=== PATIENT | male | born 1970 | race Caucasian/White ===

== ENCOUNTER 2018-10-02 17:35 | Inpatient (IN) | payer MEDICARE, OTHER ==
[~2018-10-02] VITALS: Ht 180.3 cm; Wt 293.9 kg
[2018-10-02 19:05] LABS: BASOPHILS % 0.4 % (0.0-1.0); EOSINOPHILS # (AUTO) 0.2 (0.0-0.4); EOSINOPHILS % 2.1 % (0.0-6.0); HEMATOCRIT 42.1 % (38.2-49.6); HEMOGLOBIN 13.5 g/dL (14.0-18.0); LYMPHOCYTES # (AUTO) 1.6 (1.0-3.2); LYMPHOCYTES % 14.9 % (18.0-39.1); MEAN CORPUSCULAR HEMOGLOBIN 27.3 pg (28-32); MEAN CORPUSCULAR HGB CONC 32.1 g/dL (31-35); MEAN CORPUSCULAR VOLUME 85.2 fL (81-99); MONOCYTES # (AUTO) 0.9 (0.2-0.8); MONOCYTES % 8.5 % (4.4-11.3); NEUTROPHILS # (AUTO) 7.9 (2.1-6.9); NEUTROPHILS % 73.2 % (38.7-80.0); PLATELET COUNT 267 x10e3/uL (140-360); RED BLOOD COUNT 4.94 x10e6/uL (4.3-5.7); RED CELL DISTRIBUTION WIDTH 13.5 % (11.7-14.4)
[2018-10-02 19:27] LABS: ALANINE AMINOTRANSFERASE 11 IU/L (0-55); ALBUMIN 2.6 g/dL (3.5-5.0); ALBUMIN/GLOBULIN RATIO 0.7 (0.8-2.0); ALKALINE PHOSPHATASE 79 IU/L (40-150); BLOOD UREA NITROGEN 12 mg/dL (7-26); BUN/CREATININE RATIO 13 (6-25); CALCIUM 9.2 mg/dL (8.4-10.2); CARBON DIOXIDE 26 mmol/L (22-29); CHLORIDE 97 mmol/L (98-107); CREATININE, SERUM 0.91 mg/dL (0.72-1.25); EST GLOMERULAR FILTRATION RATE > 60 ML/MIN (60-); GLUCOSE 146 mg/dL (74-118); SODIUM 133 mmol/L (136-145)
[2018-10-02 19:36] LABS: INR 0.95; PARTIAL THROMBOPLASTIN TIME 33.7 seconds (23.8-35.5); PROTHROMBIN TIME 13.5 seconds (11.9-14.5)
[2018-10-02] MEDS ORDERED: ONDANSETRON HCL INJ 2 MG/ML VIAL ONE (19:39)
--- NOTE | 2018-10-02 19:40 | NUR ---
12F URETHRAL BURNS CATH STARTED AT THIS TIME, PT TOLERATED WELL. TOTAL OF 500CC RETURN.
[2018-10-02] MEDS: VANCOMYCIN 1GM/NS 250 ML 250 ML IV SCH (20:30)
[2018-10-02] MEDS ORDERED: MORPHINE SULFATE 2 MG/ML SYR IV PRN (20:30)
[2018-10-02] MEDS: PIPER-TAZ 3.375 GM 50 ML IV SCH ×2 (20:30→22:00)
[2018-10-02 20:36] LABS: BILIRUBIN,URINE NEGATIVE (NEGATIVE); CLARITY,URINE CLEAR (CLEAR); COLOR,URINE YELLOW (YELLOW); KETONES,URINE NEGATIVE (NEGATIVE); LEUKOCYTE ESTERASE ,URINE NEGATIVE (NEGATIVE); NITRITE,URINE NEGATIVE (NEGATIVE); PROTEIN,URINE DIPSTICK NEGATIVE (NEGATIVE); URINE UROBILINOGEN 0.2 mg/dL (0.2 - 1)
[2018-10-02 20:43] LABS: AMORPHOUS SEDIMENT,URINE FEW (FEW); BACTERIA,URINE MANY /HPF; EPITHELIAL CELLS,URINE MODERATE /LPF; MUCUS,URINE MODERATE (RARE)
[2018-10-02 21:00] VITALS: BP 121/70
--- NOTE | 2018-10-02 21:20 | NUR ---
PT ARRIVING TO UNIT IN [facility] BED, PT ALERT AND ORIENTED, NO DISTRESS NOTED, BED LOCKED AND LOW, DENIES NEEDS, CALL LIGHT IN REACH, INSTRUCTED TO CALL WITH NEEDS
[2018-10-02 21:30] VITALS: BP 121/70
[2018-10-02] MEDS: ONDANSETRON HCL INJ 2 MG/ML VIAL IV PRN (23:45)
[2018-10-02] MEDS: MORPHINE SULFATE INJ 4 MG/ML INJ IV PRN (23:45)
--- NOTE | 2018-10-02 23:56 | NUR ---
SPOKE TO JOANN WITH SIZE PERAZA. PATIENT IS CURRENTLY ON LOW AIR LOSS MATTRESS THAT IS NOT FULLY INFLATING. THIS IS CAUSING THE PATIENT TO BOTTOM OUT. PATIENT FEELS LIKE HIS BUTTOCKS ARE RESTING ON THE BED FRAME. REORDERED A SPECIALITY MATTRESS THAT IS NOT AN AIR MATTRESS. A TRAPEZE WAS ALSO ORDERED WITH A HERCULES LINER. THE LINER WILL ALLOW THE PATIENT TO BE PULLED UP IN THE BED. CONFIRMATION FOR HEALTH DATA ADMINISTRATOR OF NON FUNCTIONAL SIZE PERAZA BED IS [id number]. DELIVERY FOR FOAM MATTRESS CONFIRMATION NUMBER IS [id number]. AND CONFIRMATION NUMBER FOR HERCULES LINER AND TRAPEZE IS [id number]. THE HERCULES LINER CAN PULL PATIENT UP IN THE BED AND WILL AID IN REPOSITIONING THE PATIENT NEEDED.
[2018-10-02] MEDS: SODIUM CHLORIDE 0.9% 1000ML 1,000 ML IV SCH (23:58)
[2018-10-03] VITALS (7 sets, daily range): BP systolic 103–135; BP diastolic 56–75
[2018-10-03] MEDS ORDERED: LISINOPRIL10 MG PO (00:04)
[2018-10-03] MEDS ORDERED: HYDROCHLOROTHIA25 MG (00:04)
--- NOTE | 2018-10-03 00:35 | NUR ---
SPOKE TO DON WITH SIZE PERAZA. WILL BE ABLE TO DELIVER THE NEW ORDER WITHIN 2HRS. PM NURSE AND PATIENT MADE AWARE. INFORMED SECURITY TO BE ON THE LOOK OUT FOR THE DELIVERY.
[2018-10-03] MEDS: SODIUM CHLORIDE 0.9% 1000ML 1,000 ML IV SCH ×2 (04:16→21:19)
[2018-10-03] MEDS: PIPER-TAZ 3.375 GM 50 ML IV SCH ×3 (05:20→22:46)
[2018-10-03 06:02] LABS: BASOPHILS # (AUTO) 0.1 (0.0-0.1); BASOPHILS % 0.7 % (0.0-1.0); EOSINOPHILS # (AUTO) 0.3 (0.0-0.4); EOSINOPHILS % 3.7 % (0.0-6.0); HEMATOCRIT 38.8 % (38.2-49.6); HEMOGLOBIN 12.5 g/dL (14.0-18.0); LYMPHOCYTES # (AUTO) 1.7 (1.0-3.2); LYMPHOCYTES % 18.7 % (18.0-39.1); MEAN CORPUSCULAR HEMOGLOBIN 27.5 pg (28-32); MEAN CORPUSCULAR HGB CONC 32.2 g/dL (31-35); MEAN CORPUSCULAR VOLUME 85.5 fL (81-99); MONOCYTES % 11.4 % (4.4-11.3); NEUTROPHILS # (AUTO) 5.9 (2.1-6.9); NEUTROPHILS % 64.8 % (38.7-80.0); PLATELET COUNT 236 x10e3/uL (140-360); RED BLOOD COUNT 4.54 x10e6/uL (4.3-5.7); RED CELL DISTRIBUTION WIDTH 13.5 % (11.7-14.4)
[2018-10-03 06:20] LABS: ALANINE AMINOTRANSFERASE 10 IU/L (0-55); ALBUMIN 2.5 g/dL (3.5-5.0); ALBUMIN/GLOBULIN RATIO 0.7 (0.8-2.0); ALKALINE PHOSPHATASE 71 IU/L (40-150); ANION GAP 14.2 mmol/L (8-16); BLOOD UREA NITROGEN 10 mg/dL (7-26); BUN/CREATININE RATIO 12 (6-25); CALCIUM 8.7 mg/dL (8.4-10.2); CARBON DIOXIDE 24 mmol/L (22-29); CHLORIDE 102 mmol/L (98-107); CREATININE, SERUM 0.84 mg/dL (0.72-1.25); EST GLOMERULAR FILTRATION RATE > 60 ML/MIN (60-); GLUCOSE 144 mg/dL (74-118); POTASSIUM 4.2 mmol/L (3.5-5.1); SODIUM 136 mmol/L (136-145)
--- NOTE | 2018-10-03 07:10 | NUR ---
RECEIVED PATIENT RESTING IN BED WITH EYES CLOSED. NO S/S OF DISTRESS NOTED. CALL LIGHT WITHIN REACH. BED IN THE LOWEST POSITION.
[2018-10-03] MEDS: VANCOMYCIN 1GM/NS 250 ML 250 ML IV SCH ×2 (08:52→21:19)
[2018-10-03] MEDS: ONDANSETRON HCL INJ 2 MG/ML VIAL IV PRN ×2 (09:19→21:24)
[2018-10-03] MEDS: MORPHINE SULFATE INJ 4 MG/ML INJ IV PRN (09:20)
--- NOTE | 2018-10-03 11:48 | NUR ---
WC CONSULTATION - INITIAL EVALUATION -Pt admitted through ER for Cellulitis of Left Leg, Uncontrolled Lymphedema of BLE and Urinary Retention. -HX: DM, Lymphedema -IV ABX Initiated LABS: WBC9.13 Hgb12.5 Clp764 Alb2.5 -WC Consulted For Open Draining Wounds to BLE. - Head to toe assessment performed. UNCONTROLLED +4 EDEMA-BLE. 1. LLE Anterior Distal - 3x2x 0.2 cm - Macerated 80%, granulation 20% 2. LLE Anterior Proximal - 5x2x0.2 cm - Macerated 80%, granulation 20% 3. LLE Post Distal - 7x8x0.2 cm Macerated 80%, granulation 20% 4. LLE Post Prox- 21w99e1.2 cm Macerated 80%, granulation 20% 5. RLE Upper Medial - 17x8x0.2 cm Macerated 80%, granulation 20% -Big boy bed noted with Overhead Trapeze. -Patient states unable to go to Lymphedema Center and has no transportation or support system at home. -REFUSING COMPRESSION due to pain. -Provides self care at home. -Denies previous circulation/ blood flow studies to BLE. -Bedside Flow Studies done today - Pending results -Education provided & treatment plan reviewed with benefits of compliance vs non compliance. RECOMMENDATION: 1. WASH BLE WITH HIBICLENS SOAP AND WATER THEN PAT TRY THOROUGHLY DAILY, THEN APPLY MAXSORB AG+ AND COVER WITH ABD PAD DAILY. 2. Continue Big Boy Bed and OHT. 3. Assist with Turning and Repositioning q2h. 4. Shear Friction Precautions. Addendum: 10/03/18 at 1225 by Addison Kingston RN Amended: Links added. Addendum: 10/03/18 at 1230 by Addison Kingston RN DC PLANNING NEEDS: LTC vs. SNF vs. HOME with Home Health + WC Center Visits for Lymphedema and Wound Care Management If Home With HH will require + Transportation services to outpatient WC.
--- NOTE | 2018-10-03 13:01 | NUR ---
CM MET WITH PT REGARDING DC PLANS PT LIVES ALONE IN A HOUSE IN [place] PT IS ON DISABILITY FOR LYMPHEDEMA HAS A FRIEND DL FIGUEROA [phone] WHO TAKES HIM TO HIS DOCTOR APPTS PT DOES NOT DRIVE HAS A CANE NO HOME HEALTH CARE PCP DR HITESH RODARTE CM TO FOLLOW
[2018-10-03] MEDS ORDERED: ACETAMINOPHEN/CODEINE 300MG - 30MG TAB PO PRN (14:45)
[2018-10-03] MEDS ORDERED: HYDROMORPHONE 1MG/1ML INJ IV PRN (15:00)
[2018-10-03] MEDS ORDERED: LISINOPRIL 10 MG TAB PO SCH (17:00)
[2018-10-03] MEDS: ENOXAPARIN SOD INJ 40 MG/0.4 ML SYR SC SCH (17:37)
[2018-10-03] MEDS: LACTOBACILLUS ACIDOPHILUS CAPSULE PO SCH (17:37)
[2018-10-03] MEDS: LISINOPRIL 20 MG TAB PO SCH (17:37)
--- NOTE | 2018-10-03 19:29 | NUR ---
REPORT GIVEN TO ONCOMING NURSE. WALKING ROUNDS DONE. PATIENT IS RESTING IN BED. NO ACUTE DISTRESS NOTED. CALL LIGHT WITHIN REACH. BED IN THE LOWEST POSITION.
--- NOTE | 2018-10-03 19:30 | Consultation ---
DATE OF CONSULTATION: October 03, 2018 UROLOGY CONSULTATION REASON FOR CONSULTATION: Urinary retention. HISTORY OF PRESENT ILLNESS: Mohan Díaz is a 47-year-old man currently admitted by the emergency room for cellulitis. The patient had a difficult time urinating. The nursing staff had a difficult time getting a Crawford catheter in. They were eventually able to get in a 12-Qatari Crawford catheter and obtained 600 mL of urinary retention. The patient denies previous hematuria, dysuria, urinary tract infection, or ureterolithiasis. Denies ever having urological surgery. The patient denies ever having any ureterolithiasis. PAST MEDICAL AND SURGICAL HISTORY 1. Status post appendectomy. 2. Severe morbid obesity, weighing over 600 pounds. 3. Hypertension. ALLERGIES: PLEASE REFER TO THE MAR. MEDICATIONS: Please refer to the MAR. SOCIAL HISTORY: The patient is a disabled computer security coordinator. He quit smoking a year ago after smoking one and half packs per day of cigarettes. Denies current smoking, ethanol, and drug use. FAMILY HISTORY: Noncontributory to the active urological problems. REVIEW OF SYSTEMS: As consistent above with history of present illness and past medical history. Otherwise, negative for all other systems. PHYSICAL EXAMINATION GENERAL: Severely morbidly obese man, lying in bed, in no apparent distress. VITALS: He is currently afebrile. His vital signs are currently stable. ABDOMEN: Massively obese, soft, nondistended, and nontender without costovertebral angle tenderness. Kidneys are not palpable without hepatosplenomegaly. GENITOURINARY: Testes are distended bilaterally. The right testis is severely atrophic. The left testis is less atrophic. 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 It is completely varied and has morbid obesity. Has a 12-Qatari Crawford catheter draining clear urine output. It appears that this probably in a good position. For the remainder of physical examination systems, please refer to the admission history and physical on the chart. LABORATORY STUDIES: CBC and CMP were reviewed. There are no urologically significant radiographic studies present in the computer at this time. ASSESSMENT 1. Urinary retention for 600 mL. 2. Crawford catheter in place that is small and make all the problem. 3. Urge type urinary incontinence. 4. Bladder spasms. 5. Severe morbid obesity. 6. 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 PLAN 1. Leave the Crawford catheter in place at the present time. Hopefully, he will continue working without any problems. 2. I will consider starting the patient on Flomax empirically with plans for voiding trials at later date, more specifically once the patient has improved overall medically. 3. The further management of morbid obesity as well as the antibiotics choice to the admitting physician. Thank you very much for involving us in the care of your patient. We will be happy to follow him along with you as well as an outpatient. Job#: [id number] BRANDO cc:DR. RODARTE
--- NOTE | 2018-10-03 19:32 | NUR ---
PT IS RESTING IN BED. NO RESPIRATORY DISTRESS NOTED. BED IN THE LOWEST POSITION, LOCKED, AND CALL LIGHT WITHIN REACH. WILL CONTINUE TO MONITOR.
[2018-10-03] MEDS: HYDROMORPHONE 2MG/ML 2 MG/ML ML IV PRN (21:24)
[2018-10-04] VITALS (8 sets, daily range): BP systolic 95–113; BP diastolic 46–68
[2018-10-04] MEDS: ONDANSETRON HCL INJ 2 MG/ML VIAL IV PRN ×3 (05:03→13:38)
[2018-10-04] MEDS: HYDROMORPHONE 2MG/ML 2 MG/ML ML IV PRN ×3 (05:03→13:38)
[2018-10-04] MEDS: PIPER-TAZ 3.375 GM 50 ML IV SCH ×3 (05:45→22:15)
--- NOTE | 2018-10-04 07:35 | NUR ---
RECEIVED PATIENT RESTING IN BED, NO ACUTE DISTRESS NOTED. PAIN AT A TOLERABLE LEVEL. CALL LIGHT WITHIN REACH. BED IN THE LOWEST POSITION.
[2018-10-04] MEDS: LISINOPRIL 20 MG TAB PO SCH (08:06)
[2018-10-04] MEDS: LACTOBACILLUS ACIDOPHILUS CAPSULE PO SCH ×2 (08:45→17:00)
[2018-10-04] MEDS: VANCOMYCIN 1GM/NS 250 ML 250 ML IV SCH (08:45)
[2018-10-04] MEDS: ENOXAPARIN SOD INJ 40 MG/0.4 ML SYR SC SCH ×2 (08:50→17:00)
--- NOTE | 2018-10-04 13:49 | NUR ---
PATIENT C/O PAIN/BURNING IN BLADDER. PAGED DR. TOBIAS TO NOTIFY HIM.
--- NOTE | 2018-10-04 13:55 | NUR ---
PER DR. SHAHRZAD TOBIAS. TAKE OUT THE 12 FR BURNS CATHETER AND INSERT A 16 FR COUDE CATHETER.
--- NOTE | 2018-10-04 15:01 | NUR ---
12FR BURNS CATHETER DC'D, 300CC OF DARK URINE NOTED ON BURNS BAG. 16 FR COUDE BURNS CATHETER INSERTED ORDERED BY .
[2018-10-04] MEDS: PHENAZOPYRIDINE HCL 100 MG TAB PO SCH (17:00)
[2018-10-04] MEDS ORDERED: DOCUSATE SODIUM LIQD 100 MG/10 ML UDC NG SCH (17:00)
[2018-10-04] MEDS: DOCUSATE SODIUM 100 MG CAP NG SCH (17:15)
[2018-10-04] MEDS ORDERED: DOCUSATE SODIUM 100 MG CAP PO SCH (17:15)
--- NOTE | 2018-10-04 18:45 | NUR ---
WOUND CARE TO BILATERAL LOWER EXTREMITIES COMPLETED AT THIS TIME.
--- NOTE | 2018-10-04 19:17 | NUR ---
REPORT GIVEN TO ONCOMING NURSE, PATIENT IS RESTING IN BED. NO S/S OF DISTRESS NOTED. CALL LIGHT WITHIN REACH. BED IN THE LOWEST POSITION.
--- NOTE | 2018-10-04 19:35 | NUR ---
PATIENT IS IN BED. NO COMPLAINT OF PAIN AT THIS TIME. CALL LIGHT WITHIN REACH.
[2018-10-04] MEDS: VANCOMYCIN HCL 1.25 GM in SODIUM CHLORIDE 0.9% 250ML 250 ML IV SCH (20:43)
[2018-10-05] VITALS (8 sets, daily range): BP systolic 109–120; BP diastolic 54–61
[2018-10-05] MEDS: ONDANSETRON HCL INJ 2 MG/ML VIAL IV PRN ×3 (00:26→23:14)
[2018-10-05] MEDS: HYDROMORPHONE 2MG/ML 2 MG/ML ML IV PRN ×3 (00:27→23:14)
[2018-10-05] MEDS: PIPER-TAZ 3.375 GM 50 ML IV SCH ×2 (05:03→13:42)
[2018-10-05 05:53] LABS: BASOPHILS % 0.6 % (0.0-1.0); EOSINOPHILS # (AUTO) 0.5 (0.0-0.4); EOSINOPHILS % 6.3 % (0.0-6.0); HEMATOCRIT 36.6 % (38.2-49.6); HEMOGLOBIN 11.7 g/dL (14.0-18.0); LYMPHOCYTES # (AUTO) 1.7 (1.0-3.2); LYMPHOCYTES % 23.3 % (18.0-39.1); MEAN CORPUSCULAR HEMOGLOBIN 27.3 pg (28-32); MEAN CORPUSCULAR VOLUME 85.3 fL (81-99); MONOCYTES # (AUTO) 0.7 (0.2-0.8); NEUTROPHILS # (AUTO) 4.2 (2.1-6.9); PLATELET COUNT 242 x10e3/uL (140-360); RED BLOOD COUNT 4.29 x10e6/uL (4.3-5.7); RED CELL DISTRIBUTION WIDTH 13.7 % (11.7-14.4)
[2018-10-05 06:14] LABS: BLOOD UREA NITROGEN 11 mg/dL (7-26); BUN/CREATININE RATIO 13 (6-25); CALCIUM 8.4 mg/dL (8.4-10.2); CARBON DIOXIDE 26 mmol/L (22-29); CHLORIDE 102 mmol/L (98-107); CREATININE, SERUM 0.87 mg/dL (0.72-1.25); EST GLOMERULAR FILTRATION RATE > 60 ML/MIN (60-); GLUCOSE 142 mg/dL (74-118); SODIUM 136 mmol/L (136-145)
--- NOTE | 2018-10-05 07:06 | NUR ---
RECEIVED PATIENT RESTING IN BED. RESPIRATIONS EVEN AND UNLABORED. NO ACUTE DISTRESS NOTED. CALL LIGHT WITHIN REACH. BED IN THE LOWEST POSITION.
--- NOTE | 2018-10-05 07:08 | NUR ---
report given to oncoming nurse
[2018-10-05] MEDS: ENOXAPARIN SOD INJ 40 MG/0.4 ML SYR SC SCH ×2 (08:50→17:07)
[2018-10-05] MEDS: LACTOBACILLUS ACIDOPHILUS CAPSULE PO SCH ×2 (08:50→17:07)
[2018-10-05] MEDS: PHENAZOPYRIDINE HCL 100 MG TAB PO SCH ×3 (08:50→17:07)
[2018-10-05] MEDS: VANCOMYCIN HCL 1.25 GM in SODIUM CHLORIDE 0.9% 250ML 250 ML IV SCH ×2 (08:50→20:22)
[2018-10-05] MEDS: DOCUSATE SODIUM 100 MG CAP NG SCH ×2 (08:50→17:00)
[2018-10-05] MEDS ORDERED: DOCUSATE SODIUM 100 MG CAP NG PRN (17:15)
--- NOTE | 2018-10-05 18:51 | NUR ---
REPORT GIVEN TO ONCOMING NURSE. PATIENT IS IN STABLE CONDITION. NO ACUTE DISTRESS NOTED. CALL LIGHT WITHIN REACH. BED IN THE LOWEST POSITION.
--- NOTE | 2018-10-05 19:42 | NUR ---
PATIENT IS AWAKE WATCHING TELEVISION. ORIENTED AND CONVERSANT.
[2018-10-05] MEDS: FUROSEMIDE INJ 10 MG/ML 4 ML VIAL IV SCH (20:22)
[2018-10-05] MEDS ORDERED: CEFEPIME HCL 2 GM VIAL ONE (22:10)
[2018-10-05] MEDS ORDERED: SODIUM CHLORIDE 0.9% 100 ML ONE (22:12)
[2018-10-05] MEDS: CEFEPIME 2 GM/NS 0.9% 100 ML 100 ML IV SCH (22:19)
--- NOTE | 2018-10-05 22:30 | NUR ---
WOUND CARE DONE TO LOWER EXTREMITIES
[2018-10-06] VITALS (8 sets, daily range): BP systolic 113–139; BP diastolic 54–64
[2018-10-06] MEDS ORDERED: CEFEPIME HCL 2 GM VIAL ONE (05:44)
[2018-10-06] MEDS ORDERED: SODIUM CHLORIDE 0.9% 100 ML ONE (05:45)
[2018-10-06] MEDS: CEFEPIME 2 GM/NS 0.9% 100 ML 100 ML IV SCH (05:46)
--- NOTE | 2018-10-06 07:19 | NUR ---
REPORT GIVEN TO ONCOMING NURSE.
--- NOTE | 2018-10-06 08:30 | NUR ---
Pt received resting in speciality bed. Alert and oriented x4 with lower extremities lymphedema, noted weeping to both thighs, wound care done as ordered but pt refusing to have legs wrapped. Both legs placed on disposable chucks. Placed on contact precautions for EBSL & Acinobacter in leg wound. Oriented to staff and surroundings. Encouraged to press call henderson if help needed. Call henderson within reach. All meds given as ordered. Will monitor
[2018-10-06] MEDS: VANCOMYCIN HCL 1.25 GM in SODIUM CHLORIDE 0.9% 250ML 250 ML IV SCH (08:34)
[2018-10-06] MEDS: PHENAZOPYRIDINE HCL 100 MG TAB PO SCH ×3 (08:34→17:28)
[2018-10-06] MEDS: ENOXAPARIN SOD INJ 40 MG/0.4 ML SYR SC SCH ×2 (08:34→17:28)
[2018-10-06] MEDS: LACTOBACILLUS ACIDOPHILUS CAPSULE PO SCH ×2 (08:34→17:28)
[2018-10-06] MEDS: FUROSEMIDE INJ 10 MG/ML 4 ML VIAL IV SCH ×2 (08:34→20:20)
[2018-10-06] MEDS ORDERED: NYSTATIN 15 GM POWDER UD BTL TOP SCH (09:00)
[2018-10-06] MEDS: HYDROMORPHONE 2MG/ML 2 MG/ML ML IV PRN ×2 (11:13→20:30)
[2018-10-06] MEDS: ONDANSETRON HCL INJ 2 MG/ML VIAL IV PRN (11:13)
--- NOTE | 2018-10-06 13:04 | NUR ---
ORDERS FOR [facility] EVAL CHOICE LETTER SIGNED FOR [facility]IT[facility] AND [facility] NOTIFIED OF CONSULT AND TRANSFER TODAY IF ACCEPTED
[2018-10-06] MEDS: MEROPENEM 500MG/ NS 50ML 50 ML IV SCH ×2 (13:19→17:28)
--- NOTE | 2018-10-06 17:43 | NUR ---
Attempted to give report to nurse at [facility] but nurse & Division Head refused stating the specialty bed is not available
--- NOTE | 2018-10-06 20:06 | NUR ---
RECEIVED PT IN SPECIALITY BED AOX3 BILATERAL LEGS WITH LYMPHEDEMA AND DRAINING FROM THE THIGH.HELPED TH PT TO THE BEDSIDE COMMODE .C/O PAIN .CALL LIGHT WITH IN REACH .CONTINUE TO MONITOR
[2018-10-06] MEDS ORDERED: VANCOMYCIN HCL 1.5 GM in SODIUM CHLORIDE 0.9% 250ML 300 ML IV SCH (21:00)
[2018-10-06] MEDS ORDERED: TAMSULOSIN HCL 0.4 MG CAP PO SCH (21:00)
--- NOTE | 2018-10-06 21:01 | NUR ---
REPORT GIVEN TO THE NURSE IN [facility]
--- NOTE | 2018-10-06 23:28 | NUR ---
PT IS DISCHARGED TO [facility] .PT IS TRANSFERRED BY THE AMBULANCE.PERSONAL BELONGINGS ARE GIVEN TO THE PT .
--- NOTE | 2018-10-07 11:09 | Discharge Summary ---
PRIMARY CARE DOCTOR: Dr. Hitesh Rodarte FINAL DIAGNOSIS: Sepsis present on admission due to severe bilateral lower extremity weeping cellulitis with chronic severe lymphedema. SECONDARY DIAGNOSES 1. Morbid obesity with body mass index of 90. 2. Hypertension. 3. Urinary retention. LYE TREATER: Dr. Israel, urology. PROCEDURES/STUDIES PERFORMED: Bilateral lower extremity venous Doppler was negative for DVT. HISTORY: Per [facility] HOSPITAL COURSE: The patient was admitted. Broad-spectrum antibiotic was started. Wound culture of the leg grew proteus, acinetobacter, ESBL klebsiella, Staphylococcus aureus, and group B strep. Initially, the patient was on Zosyn and vancomycin. This was adjusted to meropenem based on the wound culture results. Initially, the patient was fully resuscitated due to sepsis. After completely resuscitated, IV Lasix was started. Given the complexity of his wound, the patient was discharged to [facility]. It took 32 minutes total to discharge this patient. CONDITION ON DISCHARGE: Improved. DISCHARGE MEDICATIONS: Please see medication reconciliation form. FOSTER JAMES M.D. Job#: [id number] cc:HITESH RODARTE MD
== END 2018-10-06 23:08 | DRG 872 ==
LOC: ER 17:35 → ERHOLD 20:47 → MED/SURG3 21:19
PROVIDERS: ADMIT Internal Medicine; ATTEND Internal Medicine
DX: A41.9 Sepsis, unspecified organism (principal); L03.116 Cellulitis of left lower limb; Z68.45 Body mass index [BMI] 70 or greater, adult; L03.115 Cellulitis of right lower limb; R33.9 Retention of urine, unspecified; I10 Essential (primary) hypertension; E66.01 Morbid (severe) obesity due to excess calories; B96.4 Proteus (mirabilis) (morganii) as the cause of diseases classified elsewhere; B95.1 Streptococcus, group B, as the cause of diseases classified elsewhere; B96.1 Klebsiella pneumoniae [K. pneumoniae] as the cause of diseases classified elsewhere; B95.62 Methicillin resistant Staphylococcus aureus infection as the cause of diseases classified elsewhere; Z16.12 Extended spectrum beta lactamase (ESBL) resistance; N50.0 Atrophy of testis; I89.0 Lymphedema, not elsewhere classified
CPT/HCPCS: 36415; 51700; 80048; 80053; 80202; 81001; 83605; 83735; 85025; 85610; 85730; 87040; 87071; 87086; 87186; 87205; 93970; 96365; 97139; 99284; J0692; J1650; J1940; J2270; J2405; J2543; J3370; J7030; J7050

== ENCOUNTER 2018-11-07 21:14 | Emergency (ER) | payer MEDICARE ==
[~2018-11-07] VITALS: Ht 180.3 cm; Wt 293.9 kg
[~2018-11-07 21:14] MED LIST: HYDROCHLOROTHIA25 MG; LISINOPRIL10 MG PO
[2018-11-07 23:27] LABS: BASOPHILS % 0.3 % (0.0-1.0); EOSINOPHILS # (AUTO) 0.3 (0.0-0.4); EOSINOPHILS % 2.8 % (0.0-6.0); HEMATOCRIT 40.5 % (38.2-49.6); HEMOGLOBIN 13.3 g/dL (14.0-18.0); LYMPHOCYTES # (AUTO) 1.6 (1.0-3.2); LYMPHOCYTES % 16.8 % (18.0-39.1); MEAN CORPUSCULAR HEMOGLOBIN 27.1 pg (28-32); MEAN CORPUSCULAR HGB CONC 32.8 g/dL (31-35); MEAN CORPUSCULAR VOLUME 82.7 fL (81-99); MONOCYTES # (AUTO) 0.9 (0.2-0.8); MONOCYTES % 9.2 % (4.4-11.3); NEUTROPHILS # (AUTO) 6.9 (2.1-6.9); NEUTROPHILS % 70.4 % (38.7-80.0); PLATELET COUNT 154 x10e3/uL (140-360); RED CELL DISTRIBUTION WIDTH 14.7 % (11.7-14.4)
[2018-11-07 23:56] LABS: ALANINE AMINOTRANSFERASE 13 IU/L (0-55); ALBUMIN 2.6 g/dL (3.5-5.0); ALBUMIN/GLOBULIN RATIO 0.7 (0.8-2.0); ALKALINE PHOSPHATASE 90 IU/L (40-150); ANION GAP 14.9 mmol/L (8-16); BLOOD UREA NITROGEN 12 mg/dL (7-26); BUN/CREATININE RATIO 14 (6-25); CALCIUM 8.9 mg/dL (8.4-10.2); CARBON DIOXIDE 26 mmol/L (22-29); CHLORIDE 104 mmol/L (98-107); CREATININE, SERUM 0.86 mg/dL (0.72-1.25); EST GLOMERULAR FILTRATION RATE > 60 ML/MIN (60-); GLUCOSE 138 mg/dL (74-118); POTASSIUM 3.9 mmol/L (3.5-5.1); SODIUM 141 mmol/L (136-145)
[2018-11-08 00:21] VITALS: BP 142/83
[2018-11-08] MEDS ORDERED: HYDROCODONE/APAP 5MG-325MG TAB PO ONE (01:00)
--- NOTE | 2018-11-08 01:00 | NUR ---
OLD DRESSINGS REMOVED FROM PT'S LEGS AND NEW WET TO DRY DRESSINGS PLACED ON PT
== END 2018-11-08 01:20 | disposition home or self-care (01) ==
LOC: ER 21:14
DX: I87.1 Compression of vein (principal); I87.2 Venous insufficiency (chronic) (peripheral)
CPT/HCPCS: 36415; 80053; 85025; 99283